=== PATIENT | male | born 1950 | race Caucasian/White ===

== ENCOUNTER 2025-01-22 18:50 | Emergency (ER) | payer OTHER, MEDICARE ==
[~2025-01-22] VITALS: Ht 170.2 cm; Wt 103.3 kg
--- NOTE | 2025-01-22 19:33 | ELECTROCARDIOGRAPH REPORT ---
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 Rufino Jerez Measurements Intervals [place] Rate: 94 P: 46 MO: 181 QRS: -31 QRSD: 97 T: 29 QT: 354 QTc: 443 Interpretive Statements Sinus rhythm Ventricular trigeminy Left axis deviation Anterior infarct, old Electronically Signed On 01-23-2025 6:32:[address] Rufino Jerez Please click the below link to view image of tracing.
[2025-01-22 19:52] LABS: BASOPHILS # (AUTO) 0.1 X10'3 (0-0.2); BASOPHILS % (AUTO) 0.8 % (0-1); EOSINOPHILS # (AUTO) 0.4 X10'3 (0-0.9); EOSINOPHILS % (AUTO) 4.9 % (0-6); HEMATOCRIT 41.5 % (42.0-52.0); HEMOGLOBIN 14.2 g/dl (14.0-17.9); LYMPHOCYTES # (AUTO) 1.7 X10'3 (1.1-4.8); LYMPHOCYTES % (AUTO) 18.1 % (21-51); MEAN CORPUSCULAR HEMOGLOBIN 30.6 PG (27.0-31.0); MEAN CORPUSCULAR HGB CONC 34.3 g/dL (33.0-36.5); MEAN CORPUSCULAR VOLUME 89.4 FL (78-98); MEAN PLATELET VOLUME 8.3 FL (7.4-10.4); MONOCYTES # (AUTO) 0.7 X10'3 (0-0.9); MONOCYTES % (AUTO) 7.1 % (2-12); NEUTROPHILS # (AUTO) 6.4 X10'3 (1.8-7.7); NEUTROPHILS % (AUTO) 69.1 % (42-75); PLATELET COUNT 285 X10'3 (140-440); RED BLOOD COUNT 4.64 X10'6 (4.70-6.10); RED CELL DISTRIBUTION WIDTH 16.7 % (11.5-14.5); WHITE BLOOD COUNT 9.2 X10'3 (4.5-11.0)
--- NOTE | 2025-01-22 20:08 | RADIOLOGY REPORT ---
EXAM: DI CHEST,SINGLE VIEW REASON FOR EXAM: CP TECHNIQUE: 1 view of the chest COMPARISON: None FINDINGS/IMPRESSION: LUNGS: Low lung volumes. Atelectasis and/or infiltrate in the left lung base. Trace fluid along righ t minor fissure. Peribronchial thickening. MEDIASTINUM: Unremarkable BONES: No acute osseous abnormality OTHER: None
[2025-01-22 20:09] LABS: ALANINE AMINOTRANSFERASE 32 U/L (12-78); ALBUMIN 3.4 G/DL (3.4-5.0); ALBUMIN/GLOBULIN RATIO 0.9 (1.1-1.5); ALKALINE PHOSPHATASE 84 IU/L (46-116); ANION GAP 9 (8-16); ASPARTATE AMINO TRANSFERASE 32 U/L (10-37); BILIRUBIN,TOTAL 0.4 MG/DL (0.1-1.0); BLOOD UREA NITROGEN 16 MG/DL (7-18); BUN/CREATININE RATIO 13.2 (10.0-20.0); CHLORIDE 104 MMOL/L (99-107); CREATININE 1.21 MG/DL (0.60-1.10); GLUCOSE 230 MG/DL (70-104); POTASSIUM 4.5 MMOL/L (3.5-5.1); SODIUM 140 MMOL/L (135-145); TOTAL CARBON DIOXIDE 26.6 MMOL/L (24-32); TOTAL PROTEIN 7.2 G/DL (6.4-8.2); eCRCL 49 ML/MIN; eGFR 58 ML/MIN
[2025-01-22 20:15] LABS: PRO BRAIN NATRIURETIC PEPTIDE 164 PG/ML (0-450)
--- NOTE | 2025-01-22 22:03 | Physician Documentation ---
History of Present Illness ~ Chief Complaint: Chest Pain Stated Complaint: LOW OXYGEN/SENT OVER BY THE [facility] Time Seen by MD: 22:02 HPI Patient presents to the emergency room for evaluation of shortness of breath that has been going on for the past month. He says it all started with symptoms of influenza B. patient also endorses some chest discomfort. D-dimer was performed today at the [facility] which was significantly elevated therefore he was referred to the emergency room here for CT scan to rule out pulmonary embolism. No fevers. Home oxygen was reported to be high 80s low 90s Medication Reconciliation Allergies: Coded Allergies: prednisone (Verified Allergy, Unknown, SOB, 01/22/25) PT STATES SOB BEBAN AFTER TAKING PREDNISONE Review of Systems ROS All review of systems negative except as per HPI Physical Exam Vital Signs: Temperature: 98.6, Source: Oral, Heart Rate: 95, Respiratory Rate: 16, BP: 162/75, Pulse Oximetry: 93, Weight: 103.300 Oxygen Flow Rate: 0 Physical Exam General: Patient is awake, alert, oriented x4 in no acute distress Head: Normocephalic and atraumatic. Eyes: Conjunctival normal. EOMI. PERRL. ENT: Mucous membranes moist. Neck: Supple, trachea is midline. Chest: Clear to auscultation bilaterally without rales, rhonchi, or wheezes. There is no accessory muscle use or retractions. Cardiac: RRR without murmurs, gallops, or rubs. 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, left leg normal Progress Results/Orders Results/Orders Orders - ZHEN RITTER MD Chest,Single View (01/22/25 19:45) Monitor (01/22/25 19:31) Saline Lock (01/22/25 19:31) Oxygen (01/22/25 19:31) Cta Chest Pe (01/22/25 22:37) Completed Orders - ZHEN RITTER MD Chest,Single View (01/22/25 19:45) Cbc/Diff (01/22/25:31) PBNP (01/22/25 19:31) Electrocardiogram (01/22/25:31) CMP (01/22/25:31) Hs Troponin I W Calculations (01/22/25 19:31) Hs Troponin I W Calculations (01/22/25 21:31) Hs Troponin I W Calculations (01/22/25 22:31) Cta Chest Pe (01/22/25 22:37) Benzonatate Capsule (Tessalon Perles Cap (01/22/25 22:20) Iohexol 350mg/Ml 100ml (Omnipaque 350mg/ (01/22/25 22:21) Medications Received in ER Medications (Trade) Dose Ordered Sig/Leticia Route PRN Reason Start Time Stop Time Status Last Admin Dose Admin (Tessalon Perles capsule) 100 mg ONCE ONCE PO 01/22/25 22:20 01/22/25 22:21 DC 01/22/25 22:56 100 MG Vital Signs 01/22/25 01/22/25 19:21 22:19 Temp 98.6 98.6 Pulse 95 84 Resp 16 21 B/P (MAP) 162/75 159/73 (101) Pulse Ox 93 95 O2 Flow Rate 0 0 Laboratory Tests Test 01/22/25 19:45 01/22/25 21:21 01/22/25 22:43 White Blood Count 9.2 Red Blood Count 4.64 L Hemoglobin 14.2 Hematocrit 41.5 L Mean Corpuscular Volume 89.4 Mean Corpuscular Hemoglobin 30.6 Mean Corpuscular Hemoglobin Concent 34.3 Red Cell Distribution Width 16.7 H Platelet Count 285 Mean Platelet Volume 8.3 Neutrophils (%) (Auto) 69.1 Lymphocytes (%) (Auto) 18.1 L Monocytes (%) (Auto) 7.1 Eosinophils (%) (Auto) 4.9 Basophils (%) (Auto) 0.8 Neutrophils # (Auto) 6.4 Lymphocytes # (Auto) 1.7 Monocytes # (Auto) 0.7 Eosinophils # (Auto) 0.4 Basophils # (Auto) 0.1 CBC Comment Sodium Level 140 Potassium Level 4.5 Chloride Level 104 Carbon Dioxide Level 26.6 Anion Gap 9 Blood Urea Nitrogen 16 Creatinine 1.21 H Estimated GFR/1.73 m2 58 BUN/Creatinine Ratio 13.2 Glucose Level 230 H Calcium Level 9.0 Total Bilirubin 0.4 Aspartate Amino Transf (AST/SGOT) 32 Alanine Aminotransferase (ALT/SGPT) 32 Alkaline Phosphatase 84 Troponin I High Sensitivity 30 27 27 Pro-B-Type Natriuretic Peptide 164 Total Protein 7.2 Albumin 3.4 Globulin 3.8 Albumin/Globulin Ratio 0.9 L Chemistry Comments Troponin I High Sens Percent Delta 10 0 Troponin I Hi Sens Absolute Change -3 0 EKG/XRAY/CT/US/VASC/MRI EKG : Additional Comment EKG interpreted by myself shows time of 192, rate 94, sinus rhythm, left axis deviation, noted PVCs, no ST changes Chest X-Ray : Additional Comments Exam: CHEST,SINGLE VIEW EXAM: DI CHEST,SINGLE VIEW REASON FOR EXAM: CP TECHNIQUE: 1 view of the chest COMPARISON: None FINDINGS/IMPRESSION: LUNGS: Low lung volumes. Atelectasis and/or infiltrate in the left lung base. Trace fluid along right minor fissure. Peribronchial thickening. MEDIASTINUM: Unremarkable BONES: No acute osseous abnormality OTHER: None Medical Decision Making Findings Patient presented to the emergency room for evaluation of shortness a breath. Differentials include but are not limited to pulmonary embolism, pneumothorax, pneumonia, viral syndrome, ACS therefore emergent labs and imaging ordered. Patient brought outside facility labs with him and showed elevation of D-dimer therefore CTA performed which was negative for pulmonary embolism or significant abnormality. Unknown cause for patient's shortness of breath. Patient's chest pain is atypical and he has a heart score of three. Troponins negative. ER precautions discussed Departure Disposition: 01 HOME / SELF CARE / HOMELESS Impression: Primary Impression: Shortness of breath Condition: Stable Discharge Instructions: Nonspecific Chest Pain, Adult, [id number], Shortness of Breath, Adult, [id number] Referrals: NO PRIMARY CARE PROVIDER (PCP) Education Educated: Patient Educated regarding: need for follow up Signature Scribe Signature: No scribe Attestation: The note accurately reflects work and decisions made by me.Zhen Ritter MD 01/22/25 23:50 ZHEN RITTER MD January 22, 2025 22:03
[2025-01-22 22:19] VITALS: BP 159/73
[2025-01-22] MEDS ORDERED: iohexol 350MG/ML 100ml bottle IV ONE (22:21)
[2025-01-22] MEDS: benzonatate 100mg capsule PO ONE (22:56)
--- NOTE | 2025-01-22 23:24 | RADIOLOGY REPORT ---
CTA Chest with intravenous contrast INDICATION: Elevated D-dimer COMPARISON: None TECHNIQUE: Multidetector spiral CTA of the chest was performed of the chest with intravenous contrast . PULMONARY ANGIOGRAPHY PROTOCOL was utilized using a bolus-tracking technique centered on the main p ulmonary artery. Axial, coronal and sagittal multiplanar and MIP reformats were performed. Radiation Dose : 1. Chest: CTDI volume is mGy. Dose-length product is mGy*cm The dose indicators for CT are the volume Computed Tomography (CT) Dose Index (CTDIvol) and the Dose Length Product (DLP), and are measured in units of mGy and mGy-cm, respectively. These indicators are not patient dose, but values generated from the CT scanner acquisition factors. The report includes radiation exposure data for exposures received during this examination. Findings: Pulmonary artery: Suboptimal contrast opacification of the pulmonary arteries. No definite evidence o f pulmonary embolism in the main pulmonary arteries. Lower neck: Unremarkable. Lungs: No focal consolidation. Pleura: No pleural effusion or pneumothorax. Heart/Vascular Structures: Normal heart size. No pericardial effusion. Normal thoracic aorta. Mediastinum / Lymph Nodes: Small hiatal hernia. No evidence of lymphadenopathy. Musculoskeletal: No acute osseous abnormality. Soft tissues: Unremarkable. Visualized Upper abdomen: Cholelithiasis. IMPRESSION: Suboptimal contrast opacification of the pulmonary arteries. No definite evidence of pulmonary emboli sm in the main pulmonary arteries. No acute thoracic finding.
[2025-01-23 00:42] VITALS: PULSE 81; RESP 19; TEMP 98.6; O2SAT 96
== END 2025-01-23 00:49 | disposition home or self-care (01) ==
LOC: ER 18:52
DX: R06.02 Shortness of breath (principal); Z88.8 Allergy status to other drugs, medicaments and biological substances
CPT/HCPCS: 36415; 71045; 71275; 80053; 83880; 84484; 85025; 93005; 99285; Q9967